=== PATIENT | female | born 1980 | race American Indian/Alaskan Native ===

== ENCOUNTER 2018-05-21 12:04 | Inpatient (IN) | payer OTHER ==
[2018-05-21] MEDS ORDERED: ePHEDrine SULFATE IV PRN (12:39)
[2018-05-21] MEDS ORDERED: XYLOCAINE 2% INFILTRATI ONE ×2 (12:39→18:13)
[2018-05-21] MEDS ORDERED: ZOFRAN IV PRN ×2 (12:39→20:17)
[2018-05-21] MEDS ORDERED: BRETHINE SUB-Q PRN (12:39)
[2018-05-21] MEDS ORDERED: MINERAL OIL PO PRN (12:39)
[2018-05-21] MEDS ORDERED: LACTATED RINGERS 1,000 ML IV SCH (13:00)
[2018-05-21] MEDS ORDERED: POLYCILLIN/NS 2 GM/100 ML 2 GM/100 ML BAG IV ONE (13:00)
[2018-05-21] MEDS ORDERED: PITOCin/NS 20 UNIT/1000ML DRIP 20 UNITS/1,000 ML BAG IV SCH (13:00)
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
[2018-05-21 13:52] LABS: Hematocrit 31.3 % (30.3-42.9); Mean Corpuscular HGB Conc 32 % (30-34); Mean Corpuscular Hemoglobin 26 pg (28-32); Mean Corpuscular Volume 82 fl (79-97); Platelet Count 286 K/mm3 (140-440); Red Blood Count 3.81 M/mm3 (3.65-5.03); Red Cell Distribution Width 15.3 % (13.2-15.2)
[2018-05-21] MEDS: SUBLIMAZE IV PRN ×2 (14:30→17:20)
[2018-05-21] MEDS ORDERED: AMPICILLIN/NS 1 GM/50 ML 1 GM/50 ML BAG IV SCH (16:41)
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
[2018-05-21 17:08] LABS: Bilirubin,Urine NEG (Negative); Blood,Urine NEG (Negative); Color,Urine Yellow (Yellow); Mucus,Urine FEW /HPF; Protein,Urine <15 mg/dL mg/dL (Negative); RBC,Urine < 1.0 /HPF (0.0-6.0); Urobilinogen,Urine < 2.0 mg/dL (<2.0); WBC,Urine < 1.0 /HPF (0.0-6.0)
[2018-05-21 17:55] LABS: Alanine Aminotransferase 34 units/L (7-56)
--- NOTE | 2018-05-21 18:27 | Procedure Note ---
OB Delivery Note - Delivery Date of Delivery: 05/21/18 Surgeon: ERIKA PECK Estimated blood loss: 200cc - Vaginal Delivery presentation: vertex Delivery position: OA Intrapartum events: none Delivery induction: none Delivery augmentation: rupture of membranes Delivery monitor: external FHT, external uterine Route of delivery: Delivery placenta: spontaneous (intact) Episiotomy: none Delivery laceration: other (anterior perineal laceration, repaired with 2% lidocaine without epinephrine and 3-0 vicryl x1 stitch) Delivery repair: vicryl Anesthesia: local, intravenous - Infant A at 1 minute: 8 at 5 minutes: 9 Gender: Male (7#0)
[2018-05-21] MEDS ORDERED: TYLENOL PO PRN (20:17)
[2018-05-21] MEDS ORDERED: MILK OF MAGNESIA PO PRN (20:17)
[2018-05-21] MEDS ORDERED: TUCKS PAD TP PRN (20:17)
[2018-05-21] MEDS ORDERED: PHENERGAN PO PRN (20:17)
[2018-05-21] MEDS ORDERED: SODIUM CHLORIDE FLUSH SYRINGE 10 ML IV SCH (20:17)
[2018-05-21] MEDS ORDERED: BENADRYL PO PRN (20:17)
[2018-05-21] MEDS ORDERED: PHENERGAN PR PRN (20:17)
[2018-05-21] MEDS ORDERED: DULCOLAX PR PRN (20:17)
[2018-05-21] MEDS ORDERED: LANSINOH TP PRN (20:17)
[2018-05-21] MEDS: MOTRIN PO SCH (21:09)
[2018-05-22] MEDS: MOTRIN PO SCH ×4 (05:04→23:44)
[2018-05-22] MEDS ORDERED: BOOSTRIX IM ONE (06:00)
[2018-05-22 07:06] LABS: Hematocrit 30.4 % (30.3-42.9); Hemoglobin 9.7 gm/dl (10.1-14.3)
--- NOTE | 2018-05-22 12:21 | Discharge Summary ---
Providers - Providers Date of Admission: 05/21/18 13:15 Date of discharge: 05/22/18 (desires d/c home today) Attending physician: ERIKA PECK Primary care physician: ERIKA PECK Hospitalization Reason for admission: active labor Condition: Good Pertinent studies: post del H&H 9.7/30.4, pre-e labs NL Procedures: uncomplicated vaginal Hospital course: uncomplicated vaginal w/ routine course. slightly elevated b/p 's in labor could be r/t pain. pre-e labs NL, asymptomatic. Disposition: DC- TO HOME OR SELFCARE - Discharge Diagnoses (1) Group B Streptococcus carrier state affecting Status: Acute Comment: treated x 2 prior to delivery (2) (normal spontaneous vaginal delivery) Status: Acute Core Measure Documentation - Palliative Care Palliative Care/ Comfort Measures: Not Applicable - Core Measures Any of the following diagnoses?: none Exam - Constitutional Vitals: Temp Pulse Resp BP Pulse Ox 100.0 F H 75 22 142/89 100 05/22/18 08:10 05/22/18 08:10 05/22/18 08:10 05/22/18 08:10 05/22/18 08:10 General appearance: Present: no acute distress, well-nourished - EENT Eyes: Present: PERRL ENT: hearing intact, clear oral mucosa - Neck Neck: Present: supple, normal ROM - Respiratory Respiratory effort: normal Respiratory: bilateral: CTA - Cardiovascular Heart Sounds: Present: S1 & S2. Absent: rub, click - Extremities Extremities: pulses symmetrical, No edema Peripheral Pulses: within normal limits - Abdominal General gastrointestinal: Present: soft, non-tender, non-distended, normal bowel sounds Female genitourinary: Present: normal - Integumentary Integumentary: Present: clear, warm, dry - Musculoskeletal Musculoskeletal: gait normal, strength equal bilaterally - Psychiatric Psychiatric: appropriate mood/affect, intact judgment & insight - Neurologic Neurologic: CNII-XII intact, moves all extremities - Additional findings Additional findings: Lochia scant, fundus firm, b/p's 130-140's/60-80's - no KEITH, visual changes or epigastric pain. Plan Activity: no restrictions Diet: regular Follow up with: ERIKA PECK MD [Primary Care Provider] - 7 Days (Congratulations! Please call [phone] to schedule your son's circumcision and your blood pressure check in 1 week. bring RAQUEL cream to your son's appointment and await further teaching. Call for any complaints of headaches, visual changes or pain in your upper abdomen.) Prescriptions: Lidocain2.5%/Prilocai2.5% [Emla] 5 gm TP ONCE #1 tube
--- NOTE | 2018-05-22 12:26 | Event Note ---
Date: 05/22/18 oral temp repeated during rounds 98.8. Patient noted to have several warm beverages on bedside table as per cultural beliefs after . Advised she need to let nursing staff know when they take her temperature if she has recently has a warm beverage to get the most accurate temperature as possible.
[2018-05-22 18:16] LABS: Hematocrit 32.8 % (30.3-42.9); Hemoglobin 10.6 gm/dl (10.1-14.3); Mean Corpuscular HGB Conc 32 % (30-34); Mean Corpuscular Hemoglobin 26 pg (28-32); Mean Corpuscular Volume 81 fl (79-97); Platelet Count 269 K/mm3 (140-440); Red Blood Count 4.03 M/mm3 (3.65-5.03); Red Cell Distribution Width 15.3 % (13.2-15.2)
[2018-05-22 18:37] LABS: Alanine Aminotransferase 30 units/L (7-56); Uric Acid 3.8 mg/dL (3.5-7.6)
[2018-05-22 19:24] LABS: Bacteria,Urine 1+ /HPF (Negative); Bilirubin,Urine NEG (Negative); Blood,Urine LG (Negative); Color,Urine Yellow (Yellow); Mucus,Urine FEW /HPF; Urobilinogen,Urine < 2.0 mg/dL (<2.0)
[2018-05-22 19:31] LABS: RBC,Urine > 182.0 /HPF (0.0-6.0)
[2018-05-23] MEDS: MOTRIN PO SCH ×2 (05:57→12:41)
[2018-05-23] MEDS ORDERED: DEPO-PROVERA (CONTRACEPTION) IM ONE ×2 (06:43→18:00)
--- NOTE | 2018-05-23 06:43 | Event Note ---
Date: 05/23/18 (pt has been afebrile since 0800 05/22/18) Pt is in good spirits this AM. No c/o voiced. VSS BP normotensive. Afebrile. Desires d/c this AM. She is aware she may go after 0800 vitals are done and she remains afebrile. Again pt encouraged to call with any KEITH, blurred vision, chest pain. She will have a BP check in the office when she brings her son in for circumcision. All questions addressed. Desires DEPO, ordered.
[2018-05-23 17:42] VITALS: BP 129/75
== END 2018-05-23 19:15 | disposition home or self-care (01) | DRG 775 ==
LOC: TRG 12:04 → LD 13:15 → OB 20:34
PROVIDERS: ADMIT Obstetrics & Gynecology; ATTEND Obstetrics & Gynecology
PROC: 10E0XZZ Delivery of Products of Conception, External Approach (ICD-10-PCS; principal; 2018-05-21)
PROC: 0HQ9XZZ Repair Perineum Skin, External Approach (ICD-10-PCS; 2018-05-21)
DX: O99.824 Streptococcus B carrier state complicating childbirth (principal); Z3A.39 39 weeks gestation of pregnancy; Z37.0 Single live birth; O70.0 First degree perineal laceration during delivery
CPT/HCPCS: 36415; 81001; 82565; 83615; 84450; 84460; 84550; 85014; 85018; 85027; 86592; 86850; 86900; 86901; J0290; J1050; J2590; J3010; J7120